=== PATIENT | female | born 1985 | race African-American/Black ===

== ENCOUNTER 2016-09-24 14:54 | Emergency (ER) | payer OTHER ==
--- NOTE | ~2016-09-24 | EKG ---
PATIENT: SHENA RAZO UNIT #: [id number] Ventricular Rate: 100 BPM Atrial Rate: 100 BPM P-R Interval: 174 ms QRS Duration: 86 ms Q-T Interval: 332 ms QTC Calculation(Bezet): 428 ms P [place]: 66 degrees Calculated R [place]: 56 degrees Calculated T [place]: 24 degrees Diagnosis Line: Normal sinus rhythm Diagnosis Line: T wave abnormality, consider anterior ischemia Diagnosis Line: Abnormal ECG Diagnosis Line: No previous ECGs available Diagnosis Line: Confirmed by JOEL BERMUDEZ MD ([id number]) on 09/26/2016 Diagnosis Line: 4:03:51 PM INTERPRETING MD: LARA BRANNON
--- NOTE | ~2016-09-24 | CT4 ---
[facility] RADIOLOGY TEXT RESULTS PATIENT: SHENA RAZO LOCATION: [facility] : 85 UNIT #: [id number] AGE: [address]: Kailyn Parekh MD SEX: F ORDER DR: [id number] [facility]. [place], [place] [address] [id number] MR#: [id number] Acc #: [id number] NAME: SHENA RAZO : 1985 SEX: F STUDY DATE/TIME: 09/24/2016 15:22 UNIT: [facility] ROOM: STUDY DESCRIPTION: CT Abd and Pelv Wo Cont Attending Physician: Kailyn Parekh M.D. Ordering Physician: Kailyn Parekh M.D. Primary Care Physician: Natan Wayne M.D. MEDICAL IMAGING REPORT This report is preliminary unless electronic signature is present EXAM CT of abdomen and pelvis without contrast. INDICATION Right flank pain, chest pain, vomiting and headache for a week. COMPARISON No comparison. TECHNIQUE Axial 3 mm images were obtained through the abdomen and pelvis without IV or oral contrast. This CT exam was performed with one or more of the following radiation dose reduction techniques: automatic exposure control, adjustment of mA and/or kV according to patient size, and iterative reconstruction. FINDINGS The lung bases are clear. The liver, gallbladder, spleen, pancreas, adrenal glands and kidneys are normal. The bowel appears normal. The appendix is normal. The uterus and adnexal regions and bladder are normal. The bones are unremarkable. IMPRESSION No abnormalities are identified. The unenhanced CT scan of the abdomen and pelvis appears normal and the appendix is normal. Dictated by... Errol Newton M.D. [facility] RADIOLOGY TEXT RESULTS PATIENT: SHENA RAZO LOCATION: [facility] : 85 UNIT #: [id number] AGE: [address]: Kailyn Parekh MD SEX: F ORDER DR: THIS IS AN ELECTRONICALLY VERIFIED REPORT Errol Newton M.D. at 09/24/2016 10:10 PM Nestor TD: 09/24/2016 20:28 JOB #: [id number] MEDICAL IMAGING REPORT Page 1 of 1 COPY
[2016-09-24 14:11] LABS: BASOPHIL% 0.3 % (0-2.5); EOSINOPHIL# 0.1 X10e3 (0-0.7); EOSINOPHIL% 0.8 % (0.0-7.0); HEMATOCRIT 43.7 % (35.0-45.0); HEMOGLOBIN 13.7 gm/dL (12.0-16.0); LYMPHOCYTE# 2.5 X10e3 (1.0-3.5); LYMPHOCYTE% 26.1 % (17.0-45.0); MEAN CELL VOLUME 72.9 FL (83-96); MEAN CORPUSCULAR HEMOGLOBIN 22.9 PG (28-34); MEAN CORPUSCULAR HGB CONC 31.4 g/dL (30-36); MEAN PLATELET VOLUME 8.4 FL (6.5-11.5); MONOCYTE# 0.6 X10e3 (0-1.0); MONOCYTE% 6.7 % (3.0-12.0); NEUTROPHIL# 6.3 X10e3 (1.5-7.1); NEUTROPHIL% 66.1 % (40-75); PLATELET COUNT 255 X10e3 (140-420); RED BLOOD COUNT 5.99 X10e (3.90-5.30); RED CELL DISTRIBUTION WIDTH 16.6 % (11.0-15.5); WHITE BLOOD COUNT 9.5 X10e3 (4.0-10.5)
[2016-09-24 14:12] LABS: DIFF IND NO
[2016-09-24 14:20] LABS: URINE SOURCE CLEAN CATCH
[2016-09-24 14:25] LABS: URINE APPEARANCE CLOUDY; URINE BLOOD TRACE (NEG); URINE COLOR DK YELLOW; URINE GLUCOSE 100 MG/DL (NEG); URINE KETONE TRACE (NEG); URINE LEUKOCYTE ESTERASE NEG (NEG); URINE NITRATE NEG (NEG); URINE PROTEIN NEG (NEG); URINE SPECIFIC GRAVITY 1.038 (1.003-1.035)
[2016-09-24 14:27] LABS: CULTURE INDICATED? YES; URINE BACTERIA AUWI 1+ (NEGATIVE); URINE SQUAMOUS EPITHELIAL CELL MOD /[HPF]; UWBCS1 AUWI 0-2 (0-5)
[2016-09-24 14:29] LABS: URINE BILIRUBIN NEG (NEG)
[2016-09-24 14:30] LABS: U HYALINE CASTS AUWI 0-2 /[LPF]
[2016-09-24 14:42] LABS: ALBUMIN SERUM 4.4 g/dL (3.5-5.0); ALKALINE PHOSPHATASE 76 U/L (32-92); ALT (SGPT) 15 U/L (10-40); AST (SGOT) 16 U/L (10-42); BILIRUBIN,TOTAL 0.4 mg/dL (0.2-2.0); BLOOD UREA NITROGEN 10 mg/dL (9-23); BUN/CREATININE RATIO 11.11; CALCIUM SERUM 9.6 mg/dL (8.4-10.2); CARBON DIOXIDE 25 mmol/L (22-31); CHLORIDE 106 mmol/L (100-111); CREATININE SERUM 0.9 mg/dL (0.6-1.4); GLOM FILT RATE Estimated 85.3 mL/min (>60); GLUCOSE FASTING 114 mg/dL (70-110); LIPASE 19 U/L (22-51); POTASSIUM 4.3 mmol/L (3.5-5.1); PROTEIN TOTAL SERUM 7.7 g/dL (6.0-8.3); SODIUM 138 mmol/L (135-145)
[2016-09-24 14:43] LABS: BILIRUBIN, DIRECT <0.1 mg/dL (0.0-0.2); BILIRUBIN,INDIRECT 0.3 mg/dL (0.0-0.9)
== END 2016-09-24 16:26 | disposition home or self-care (01) ==
LOC: CED 14:54
PROVIDERS: Student in an Organized Health Care Education/Training Program
DX: R10.9 Unspecified abdominal pain (principal); F17.200 Nicotine dependence, unspecified, uncomplicated
CPT/HCPCS: 74176; 80048; 80076; 81003; 83690; 84703; 85025; 87086; 93005; 99284